=== PATIENT | male | born 1970 | race Caucasian/White ===

== ENCOUNTER 2017-07-16 08:59 | Emergency (ER) | payer OTHER ==
[~2017-07-16] VITALS: Ht 188 cm; Wt 108.9 kg
[2017-07-16 09:21] VITALS: Ht 188 cm; Wt 108.9 kg
[2017-07-16 13:23] VITALS: BP 187/136
== END 2017-07-16 13:23 | disposition home or self-care (01) ==
LOC: ED 08:59
DX: M25.511 Pain in right shoulder (principal)